=== PATIENT | male | born 1980 | race Caucasian/White ===

== ENCOUNTER 2020-06-04 21:23 | Emergency (ER) | payer SELFPAY ==
[~2020-06-04] VITALS: Ht 172.7 cm; Wt 95.3 kg
--- NOTE | 2020-06-04 21:23 | NUR ---
JHOAN HURST FOR PRE-BOOK; PT IN CHAIR A
--- NOTE | 2020-06-04 21:23 | NUR ---
PT WOUNDS IRRIGATED WITH NORMAL SALINE
[2020-06-04] MEDS ORDERED: BACITRACIN OINT 500 UNITS/GM PKT TP ONE ×2 (21:25)
--- NOTE | 2020-06-04 21:29 | NUR ---
PT WOUND COVERED WITH NON ADHERENT DRESSING AND WRAPPED WITH COFLEX AFTER BACITRACIN APPLIED. +CSM
[2020-06-04 21:38] VITALS: BP 145/96
[2020-06-04 21:53] VITALS: BP 145/96
--- NOTE | 2020-06-04 21:53 | NUR ---
PATIENT BIB [employer]. PATIENT EXAMINED BY AYDEE ALEMAN. PATIENT MEDICALLY CLEARED AND RELEASED IN CUSTODY IN STABLE CONDITION. ORIGINAL PRE-BOOK FORM GIVEN TO OFFICER CORNELIA/MARK 443.
== END 2020-06-04 21:53 ==
LOC: MED 21:23
DX: S60.511A Abrasion of right hand, initial encounter (principal); Z02.89 Encounter for other administrative examinations; W25.XXXA Contact with sharp glass, initial encounter; Y93.89 Activity, other specified; Y92.89 Other specified places as the place of occurrence of the external cause; Y99.8 Other external cause status
CPT/HCPCS: 90471; 90715; 99283